=== PATIENT | female | born 1950 | race African-American/Black ===

== ENCOUNTER → 2016-11-08 | Outpatient (CLI) | payer MEDICARE, OTHER ==
--- NOTE | 2016-11-08 13:44 | RAD ---
DATE: 11/08/2016 EXAM: DIGITAL SCREEN BILAT W/CAD HISTORY: Screening COMPARISON: 10/08/2015 This study was interpreted with the benefit of Computerized Aided Detection (CAD). FINDINGS: The breast parenchyma shows scattered fibroglandular densities. Breast parenchyma level B. There are scattered benign-appearing calcifications in the breasts. There is a possible developing nodule in the right breast. Cone compression imaging, rolled cc views and an ML view are advised. Depending on the findings at diagnostic mammography targeted ultrasound may be warranted. The left breast appears unchanged. IMPRESSION: Possible developing nodule right breast BI-RADS CATEGORY: 0 INCOMPLETE: NEED ADDITIONAL IMAGING EVAULATION AND/OR PRIOR MAMMOGRAMS FOR COMPARISON RECOMMENDED FOLLOW-UP: ADD ADDITIONAL IMAGING PQRS compliance statement: Patient information was entered into a reminder system with a target due date soon for the next mammogram. Mammography is a sensitive method for finding small breast cancers, but it does not detect them all and is not a substitute for careful clinical examination. A negative mammogram does not negate a clinically suspicious finding and should not result in delay in biopsying a clinically suspicious abnormality. "Our facility is accredited by the [employer] Mammography [employer]."
== END | disposition home or self-care (01) ==
LOC: MAMMO 13:12
PROVIDERS: ATTEND Family Medicine
DX: Z12.31 Encounter for screening mammogram for malignant neoplasm of breast (principal)
CPT/HCPCS: G0202; 77067

== ENCOUNTER → 2016-11-16 | Outpatient (CLI) | payer MEDICARE, OTHER ==
--- NOTE | 2016-11-16 12:55 | RAD ---
EXAM: DIGITAL DIAGNOSTIC RT. HISTORY: Abnormal screening mammogram, further evaluation. COMPARISON: 11/08/2016 and 10/08/2015. FINDINGS: Digital mammography was performed. Computer-aided detection (CAD) was utilized. Spot compression views of the right breast in the CC and MLO projections were obtained. Breast parenchyma is compressible. No persistent suspicious abnormality is seen. IMPRESSION: No persistent suspicious mammographic abnormality. Recommend return to annual screening. BI-RADS CATEGORY: 2 BENIGN FINDING(S) RECOMMENDED FOLLOW-UP: 12M 12 MONTH FOLLOW-UP PQRS compliance statement: Patient information was entered into a reminder system with a target due date for the next mammogram. Mammography is a sensitive method for finding small breast cancers, but it does not detect them all and is not a substitute for careful clinical examination. A negative mammogram does not negate a clinically suspicious finding and should not result in delay in biopsying a clinically suspicious abnormality. "Our facility is accredited by the [employer] Mammography [employer]."
== END | disposition home or self-care (01) ==
LOC: MAMMO 12:21
PROVIDERS: ATTEND Family Medicine
DX: R92.8 Other abnormal and inconclusive findings on diagnostic imaging of breast (principal)
CPT/HCPCS: G0206; 77065

== ENCOUNTER → 2017-11-23 | Outpatient (CLI) | payer MEDICARE, OTHER | END | disposition home or self-care (01) | LOC: MAMMO 09:24 | DX: Z12.31 Encounter for screening mammogram for malignant neoplasm of breast (principal) | CPT/HCPCS: 77063; 77067 ==

== ENCOUNTER → 2018-11-27 | Outpatient (CLI) | payer MEDICARE ==
--- NOTE | 2018-11-27 16:17 | RAD ---
DATE: 11/27/2018 EXAM: MAMMO DELMY SCREENING BILATERAL HISTORY: Routine screening COMPARISON: 11/23/2017 This study was interpreted with the benefit of Computerized Aided Detection (CAD). Breast Density: HETERO The breast parenchyma is heterogenously dense, which could reduce sensitivity of mammography. Breast parenchyma level C. FINDINGS: 2-D and 3-D tomosynthesis imaging was performed in CC and MLO projections. No new or enlarging breast densities are seen. Benign type calcifications are present. No suspicious microcalcifications have developed. IMPRESSION: Stable mammograms without evidence of malignancy. BI-RADS CATEGORY: 2 BENIGN FINDING(S) RECOMMENDED FOLLOW-UP: 12M 12 MONTH FOLLOW-UP PQRS compliance statement: Patient information was entered into a reminder system with a target due date for the next mammogram. Mammography is a sensitive method for finding small breast cancers, but it does not detect them all and is not a substitute for careful clinical examination. A negative mammogram does not negate a clinically suspicious finding and should not result in delay in biopsying a clinically suspicious abnormality. "Our facility is accredited by the [employer] Mammography [employer]."
== END | disposition home or self-care (01) ==
LOC: MAMMO 14:47
PROVIDERS: ATTEND Family Medicine
DX: Z12.31 Encounter for screening mammogram for malignant neoplasm of breast (principal); N64.89 Other specified disorders of breast
CPT/HCPCS: 77063; 77067

== ENCOUNTER → 2020-12-29 | Outpatient (CLI) | payer MEDICARE ==
--- NOTE | 2020-12-29 12:42 | CARD ---
MR#: [id number] Date of Study: 12/29/2020 Ordering Physician: JENNIFER CARLIN, Referring Physician: JENNIFER CARLIN, Tech: [facility] APPROVED REPORT EXAM: Two-dimensional and M-mode echocardiogram with Doppler and color Doppler. Other Information Quality : AverageHR: 64bpm Rhythm : NSR INDICATION Palpitations Dyspnea RISK FACTORS Hyperlipidemia Diabetes 2D DIMENSIONS RVDd3.1 (2.9-3.5cm)Left Atrium(2D)3.5 (1.6-4.0cm) IVSd1.1 (0.7-1.1cm)Aortic Root(2D)3.0 (2.0-3.7cm) LVDd3.8 (3.9-5.9cm)LVOT Diameter2.0 (1.8-2.4cm) PWd1.3 (0.7-1.1cm)LVDs2.2 (2.5-4.0cm) FS (%) 43.2 %SV47.1 ml LVEF(%)75.1 (>50%) Aortic Valve AoV Peak Logan.132.7cm/sAoV VTI28.2cm AO Peak GR.7.0mmHgLVOT Peak Logan.111.0cm/s AO Mean GR.3mmHgAVA (VMAX)2.53cm2 Mitral Valve MV E Uivmgeax57.9cm/sMV DECEL CAQY260eo MV A Ldlxdjui35.8cm/sE/A Ratio0.7 Tricuspid Valve TR P. Eutpdvce366wn/sTR Peak Gr.25mmHg LEFT VENTRICLE The left ventricle is normal size. There is normal left ventricular wall thickness. The left ventricu lar systolic function is normal. Estimated ejection 55-60%. There is normal LV segmental wall motion . Transmitral Doppler flow pattern is Grade I-abnormal relaxation pattern. RIGHT VENTRICLE The right ventricle is normal size. There is normal right ventricular wall thickness. The right ventr icular systolic function is normal. ATRIA The left atrium size is normal. The right atrium size is normal. The interatrial septum is intact wit h no evidence for an atrial septal defect or patent foramen ovale as noted on 2-D or Doppler imaging. AORTIC VALVE The aortic valve is normal in structure and function. Doppler and Color Flow revealed no significant aortic regurgitation. There is no significant aortic valvular stenosis. MITRAL VALVE The mitral valve is normal in structure and function. There is no evidence of mitral valve prolapse. There is no mitral valve stenosis. Doppler and Color-flow revealed moderate mitral regurgitation. TRICUSPID VALVE The tricuspid valve is normal in structure and function. Doppler and Color Flow revealed mild tricusp id regurgitation. Estimated PAP 30 mmHg. There is no tricuspid valve stenosis. GREAT VESSELS The aortic root is normal in size. The ascending aorta is normal in size. The IVC is normal in size a nd collapses >50% with inspiration. PERICARDIAL EFFUSION There is no evidence of significant pericardial effusion. Critical Notification Critical Value: No <Conclusion> The left ventricular systolic function is normal. Estimated ejection 55-60%. There is normal LV segmental wall motion. Transmitral Doppler flow pattern is Grade I-abnormal relaxation pattern. Moderate mitral regurgitation. Mild tricuspid regurgitation. Estimated PAP 30 mmHg. There is no evidence of significant pericardial effusion. Signed by : Oswald Garcia, Electronically Approved : 12/29/2020 12:41:49
== END ==
LOC: ECHO 10:06
PROVIDERS: ATTEND Internal Medicine Cardiovascular Disease
DX: I08.1 Rheumatic disorders of both mitral and tricuspid valves (principal); I10 Essential (primary) hypertension
CPT/HCPCS: 93306